=== PATIENT | male | born 1955 | race Caucasian/White ===

== ENCOUNTER 2025-05-07 10:02 | Emergency (ER) | payer MEDICARE ==
[~2025-05-07] VITALS: Ht 180.3 cm; Wt 78.0 kg
[2025-05-07 12:20] LABS: LEUKOCYTE ESTERASE ,URINE NEGATIVE (NEGATIVE)
[2025-05-07 12:21] LABS: PROTEIN,URINE DIPSTICK NEGATIVE (NEGATIVE); URINE UROBILINOGEN 0.2 mg/dL (0.2 - 1)
[2025-05-07 12:23] LABS: EPITHELIAL CELLS,URINE FEW /LPF
[2025-05-07] MEDS ORDERED: CEFPODOXIME PR200 MG PO (12:33)
[2025-05-07 13:25] VITALS: PULSE 90; RESP 18; TEMP 97.8
[2025-05-07 13:26] VITALS: BP 153/93; PULSE 90; RESP 18; O2SAT 95
== END 2025-05-07 13:25 | disposition home or self-care (01) ==
LOC: ER 10:09
DX: R33.9 Retention of urine, unspecified (principal); N39.0 Urinary tract infection, site not specified
CPT/HCPCS: 51700; 81001; 87086; 99282

== ENCOUNTER 2025-05-08 13:17 | Emergency (ER) | payer MEDICARE ==
[~2025-05-08] VITALS: Ht 180.3 cm; Wt 77.1 kg
[~2025-05-08 13:17] MED LIST: CEFPODOXIME PR200 MG PO
[2025-05-08 14:30] VITALS: PULSE 84; RESP 18; TEMP 97.8
[2025-05-08 14:56] VITALS: BP 132/72; PULSE 87; RESP 18; O2SAT 97
== END 2025-05-08 15:15 | disposition home or self-care (01) ==
LOC: ER 13:44
DX: T83.091A Other mechanical complication of indwelling urethral catheter, initial encounter (principal); E11.9 Type 2 diabetes mellitus without complications; E78.5 Hyperlipidemia, unspecified
CPT/HCPCS: 99282